=== PATIENT | female | born 1960 | race Caucasian/White ===

== ENCOUNTER 2018-03-16 21:25 | Outpatient (REF) | payer BC, SELFPAY ==
[2018-03-16 22:21] LABS: ALT 37 U/L (12-78); AST 22 U/L (15-37); Alkaline Phosphatase 97 U/L (46-116); BUN 11 mg/dL (7-18); Bilirubin, Total 0.5 mg/dL (0.2-1.0); CREATININE 0.92 mg/dL (0.55-1.02); Calcium 9.2 mg/dL (8.5-10.1); Chloride 103 mmol/L (98-107); Cholesterol 251 mg/dL (50-200); Glucose 92 mg/dL (70-100); HDL Cholesterol 44 mg/dL (40-60); LDL CHOLESTEROL 181 mg/dL (<100); Sodium 139 mmol/L (136-145); Total Protein 7.1 g/dL (6.4-8.2); Triglyceride 149 mg/dL (30-150)
== END 2018-03-16 21:45 ==
LOC: NCHCN 21:25
PROVIDERS: PCP Physician Assistant Medical; Visit Provider Physician Assistant Medical
DX: E78.5 Hyperlipidemia, unspecified (principal); I10 Essential (primary) hypertension; E03.9 Hypothyroidism, unspecified
CPT/HCPCS: 80053; 80061; 83721; 84443

== ENCOUNTER 2018-04-27 21:31 | Outpatient (REF) | payer BC, SELFPAY | END 2018-04-27 21:51 | LOC: NCHCN 21:31 | PROVIDERS: PCP Physician Assistant Medical; Visit Provider Physician Assistant Medical | DX: R10.31 Right lower quadrant pain (principal) | CPT/HCPCS: 87077; 87086; 87186 ==

== ENCOUNTER 2018-07-13 00:43 | Outpatient (CLI) | payer BC, SELFPAY ==
--- NOTE | 2018-07-13 09:58 | DI.MAMMO_ITS ---
SYMPTOM/DIAGNOSIS: SCREENING, HEALTH MAINTENANCE, Z00.8 MAMMOGRAMS: Mammograms were interpreted according to the usual protocol including computer analysis with CAD system, tomosynthesis and C view imaging. The breasts are of moderate density with fairly symmetrical distribution of fibroglandular tissue. No dominant mass or clumped microcalcification is identified in either breast. The current examination is compared with previous examination of 06/2016 and there has been no gross interval change in appearance since that time. CONCLUSION: No specific evidence of malignancy at this time. Routine screening examinations are suggested at yearly intervals in this age group according to the ACS/ACR guidelines. Category 1. Breast density, category B. MQSA ASSESSMENT OF FINDINGS: Negative. Category 1. Patient will receive a letter notifying them of these results. BI-RADS category B. There are scattered areas of fibroglandular density.
== END 2018-07-13 01:03 ==
PROVIDERS: PCP Physician Assistant Medical; Visit Provider Physician Assistant Medical
DX: Z00.00 Encounter for general adult medical examination without abnormal findings (principal); Z12.31 Encounter for screening mammogram for malignant neoplasm of breast
CPT/HCPCS: 77063; 77067

== ENCOUNTER 2018-07-20 21:51 | Outpatient (REF) | payer BC, SELFPAY ==
[2018-07-20 21:34] LABS: ALT 33 U/L (12-78); AST 19 U/L (15-37); Albumin 3.6 g/dL (3.4-5.0); Alkaline Phosphatase 69 U/L (46-116); Anion Gap 6.9 mmol/L (3-11); BUN 15 mg/dL (7-18); Bilirubin, Total 0.4 mg/dL (0.2-1.0); CO2 29.1 mmol/L (21.0-32.0); CREATININE 0.86 mg/dL (0.55-1.02); Calcium 8.9 mg/dL (8.5-10.1); Chloride 104 mmol/L (98-107); Cholesterol 172 mg/dL (50-200); Glucose 108 mg/dL (70-100); HDL Cholesterol 39 mg/dL (40-60); LDL CHOLESTEROL 105 mg/dL (<100); Potassium 4.3 mmol/L (3.5-5.1); Sodium 140 mmol/L (136-145); Total Protein 6.6 g/dL (6.4-8.2); Triglyceride 206 mg/dL (30-150)
[2018-07-20 21:44] LABS: Hemoglobin A1C 5.7 % (4.5-6.2)
== END 2018-07-20 22:11 ==
LOC: NCHCN 21:51
PROVIDERS: PCP Physician Assistant Medical; Visit Provider Physician Assistant Medical
DX: E78.5 Hyperlipidemia, unspecified (principal)
CPT/HCPCS: 80053; 80061; 83721; 83036

== ENCOUNTER 2019-02-26 08:50 | Outpatient (REF) | payer BC, SELFPAY ==
[2019-02-26 18:44] LABS: TSH 3.76 uIU/mL (0.36-3.74)
== END 2019-02-26 09:10 ==
LOC: NCHCN 08:50
PROVIDERS: PCP Physician Assistant Medical; Visit Provider Physician Assistant Medical
DX: E03.9 Hypothyroidism, unspecified (principal)
CPT/HCPCS: 84443

== ENCOUNTER 2019-05-03 10:53 | Outpatient (REF) | payer OTHER, SELFPAY ==
[2019-05-03 21:56] LABS: Hemoglobin A1C 5.8 % (3.8-5.6)
[2019-05-03 22:24] LABS: ALT 43 U/L (14-59); AST 24 U/L (15-37); Albumin 4.1 g/dL (3.4-5.0); Alkaline Phosphatase 73 U/L (46-116); Anion Gap 7.3 mmol/L (3-11); BUN 21 mg/dL (7-18); Bilirubin, Total 0.4 mg/dL (0.2-1.0); CO2 32.7 mmol/L (21.0-32.0); CREATININE 1.03 mg/dL (0.55-1.02); Calcium 9.5 mg/dL (8.5-10.1); Calculated LDL 87 mg/dL (<100); Chloride 100 mmol/L (98-107); Cholesterol 172 mg/dL (<200); Estimated GFR 55.43 (mL/min/1.73m2); Glucose 105 mg/dL (74-106); HDL Cholesterol 38 mg/dL (40-60); Potassium 4.1 mmol/L (3.5-5.1); Sodium 140 mmol/L (136-145); TSH 2.11 uIU/mL (0.36-3.74); Total Protein 7.3 g/dL (6.4-8.2); Triglyceride 238 mg/dL (<150)
== END 2019-05-03 11:13 ==
LOC: NCHCN 10:53
PROVIDERS: PCP Physician Assistant Medical; Visit Provider Physician Assistant Medical
DX: E03.9 Hypothyroidism, unspecified (principal); E78.5 Hyperlipidemia, unspecified
CPT/HCPCS: 80053; 80061; 82306; 82607; 82670; 83001; 83002; 83036; 84146; 84443; 85025

== ENCOUNTER 2020-07-31 20:48 | Outpatient (REF) | payer OTHER, SELFPAY ==
[2020-07-31 14:57] LABS: Hemoglobin A1C 5.6 % (<5.7)
[2020-07-31 15:07] LABS: ALT 34 U/L (14-59); AST 17 U/L (15-37); Albumin 3.9 g/dL (3.4-5.0); Alkaline Phosphatase 70 U/L (46-116); Anion Gap 8.8 mmol/L (3-11); BUN 19 mg/dL (7-18); Bilirubin, Total 0.4 mg/dL (0.2-1.0); CO2 28.2 mmol/L (21.0-32.0); CREATININE 1.1 mg/dL (0.55-1.02); Calcium 9.1 mg/dL (8.5-10.1); Calculated LDL 96 mg/dL (<100); Chloride 106 mmol/L (98-107); Cholesterol 167 mg/dL (<200); Glucose 93 mg/dL (74-106); HDL Cholesterol 41 mg/dL (40-60); Potassium 4.9 mmol/L (3.5-5.1); Sodium 143 mmol/L (136-145); TSH 1.97 uIU/mL (0.36-3.74); Total Protein 6.9 g/dL (6.4-8.2); Triglyceride 150 mg/dL (<150)
== END 2020-07-31 20:49 | disposition home or self-care (01) ==
LOC: NCHCN 20:48
PROVIDERS: PCP Physician Assistant Medical; Visit Provider Physician Assistant Medical
DX: E03.9 Hypothyroidism, unspecified (principal); E78.5 Hyperlipidemia, unspecified; I10 Essential (primary) hypertension; R73.03 Prediabetes
CPT/HCPCS: 80053; 80061; 83036; 84443

== ENCOUNTER 2021-07-09 01:29 | Outpatient (CLI) | payer OTHER, SELFPAY ==
--- NOTE | 2021-07-09 11:19 | DI.MAMMO_ITS ---
Exam(s) MAMMO SCREENING EXAM: MAMMO SCREENING CLINICAL HISTORY: SCREENING, HEALTH MAINTENANCE EXAM, Z00.8 TECHNIQUE: Mammograms were interpreted according to the usual protocol including computer analysis w [employer] CAD system, tomosynthesis and C-view imaging. COMPARISON: 2017 and 2018 FINDINGS: The breasts are composed of scattered fibroglandular densities, Breast Density category B. No suspicious masses or suspicious microcalcifications are seen. No skin thickening or abnormal axillary lymph nodes are seen. There has been no significant change from prior exams. IMPRESSION: BI-RADS Category 1, Negative mammogram Yearly screening mammography is recommended. Breast Density - Category B, scattered fibroglandular densities. A negative radiographic report should not delay biopsy if a dominant or clinically suspicious mass is present. Up to ten percent of cancers are not identified on mammography. A negative report may reinforce clinical impression. Adenosis and dense breasts may obscure an underlying neoplasm. False positive reports average 6 to 10%. Patient will receive a letter notifying them of these results.
== END 2021-07-09 01:49 ==
PROVIDERS: PCP Physician Assistant Medical; Visit Provider Physician Assistant Medical
DX: Z00.00 Encounter for general adult medical examination without abnormal findings (principal); Z12.31 Encounter for screening mammogram for malignant neoplasm of breast
CPT/HCPCS: 77063; 77067

== ENCOUNTER 2021-10-12 10:54 | Outpatient (REF) | payer OTHER, SELFPAY ==
[2021-10-12 16:49] LABS: HCT 44.7 % (36.0-46.0); HGB 14.6 g/dL (11.2-15.7); MCH 28.9 pg (27.0-33.0); MCHC 32.7 % (32.0-36.0); MCV 88 fL (80-95); MPV 10.8 fL (8.0-11.0); Platelet Count 327 10^3/uL (130-400); RBC 5.06 10^6/uL (3.93-5.22); RDW 13.2 % (11.7-14.6); RDW-SD 42.9 fL; WBC 9.18 10^3/uL (4.4-10.8)
[2021-10-12 17:32] LABS: Hemoglobin A1C 5.6 % (<5.7)
[2021-10-12 18:13] LABS: ALT 33 U/L (14-59); AST 15 U/L (15-37); Albumin 3.8 g/dL (3.4-5.0); Alkaline Phosphatase 71 U/L (46-116); Anion Gap 7.9 mmol/L (3-11); BUN 19 mg/dL (7-18); Bilirubin, Total 0.4 mg/dL (0.2-1.0); CO2 32.1 mmol/L (21.0-32.0); CREATININE 1.2 mg/dL (0.55-1.02); Calculated LDL 84 mg/dL (<100); Chloride 102 mmol/L (98-107); Cholesterol 172 mg/dL (<200); Estimated GFR 46.14 (mL/min/1.73m2); Glucose 120 mg/dL (74-106); HDL Cholesterol 41 mg/dL (40-60); Potassium 3.6 mmol/L (3.5-5.1); Sodium 142 mmol/L (136-145); TSH 3.08 uIU/mL (0.36-3.74); Total Protein 7.3 g/dL (6.4-8.2); Triglyceride 236 mg/dL (<150)
== END 2021-10-12 10:55 | disposition home or self-care (01) ==
LOC: NCHCN 10:54
PROVIDERS: PCP Physician Assistant Medical; Visit Provider Physician Assistant Medical
DX: R73.03 Prediabetes (principal); E03.9 Hypothyroidism, unspecified; E78.5 Hyperlipidemia, unspecified; K76.0 Fatty (change of) liver, not elsewhere classified
CPT/HCPCS: 80053; 80061; 85027; 83036; 84443

== ENCOUNTER 2022-01-18 16:41 | Outpatient (REF) | payer OTHER, SELFPAY ==
--- NOTE | 2022-01-18 16:15 | ENDOMET_PTH ---
PATIENT: Cherri Morales LOC: [facility] U#:[id number] AGE/SX: 61/F ROOM: RE01/18/[address]: Geraldine Hernadez MD : 1960 BED: DIS: 01/18/2022 SPEC #: [id number] RECD: 01/18/22 18:29 STATUS: NASH REInez #: [id number] ERVIN: 01/18/22 16:[address]: Geraldine Hernadez DEPT: Surgical Specimen RECD BY: Alicia Florez ENTERED: 01/18/22 18:29 SP TYPE: Endomet OTHR DR: Isabel Peña Tissues: 1 - ENDOMETRIUM BX/CURRETTE 2 - CERVICAL BIOPSY Procedures: GROSS AND MICRO LEVEL 4 Comments: [id number]
== END 2022-01-18 16:42 | disposition home or self-care (01) ==
LOC: LBN 16:41
PROVIDERS: PCP Physician Assistant Medical; Visit Provider Obstetrics & Gynecology
DX: N84.1 Polyp of cervix uteri (principal)
CPT/HCPCS: 88305

== ENCOUNTER 2022-02-25 05:52 | Day surgery (SDC) | payer OTHER, SELFPAY ==
[2022-02-25] VITALS (11 sets, daily range): BP systolic 106–148; BP diastolic 45–86; PULSE 65–76; RESP 13–22; TEMP 36.3–36.5; O2SAT 93–100; BMI 57.5
--- NOTE | 2022-02-25 06:57 | W.ANESPRE ---
General Info Date of Service Date Performed: 02/25/22 Height: 5 ft 1 in Weight: 138.2 kg Body Mass Index (BMI): 57.5 Surgical Procedure: Operation Date: 02/25/22 07:40 Proposed Procedure Side Surgeon p Dilation & Curettage Geraldine Hernadez MD Meds Allergies and Home Medications Allergies Allergy/AdvReac Type Severity Reaction Status Date / Time sulfamethoxazole Allergy Severe Verified 02/25/22 06:52 [From Bactrim] trimethoprim [From Bactrim] Allergy Severe Verified 02/25/22 06:52 SEASONAL ALLERGIES Allergy PLUGS UP Uncoded 02/25/22 06:52 SINUSES AND SWELLS EYES Home Medication Medication Instructions Recorded aspirin 81 mg chewable tablet 81 mg PO HS #1 tab-cap 07/02/13 (Aspirin Low-Strength) simvastatin 20 mg tablet (Zocor) 20 mg PO HS 07/02/13 cetirizine 10 mg tablet 10 mg PO HS 07/29/18 chlorthalidone 25 mg tablet 25 mg PO HS 07/29/18 atenolol 50 mg tablet 100 mg PO QHS #1 tab-cap 01/18/22 cranberry extract 425 mg capsule 425 mg PO HS 01/18/22 levothyroxine 75 mcg tablet 100 mcg PO DAILY 01/18/22 (Synthroid) melatonin 10 mg capsule 10 mg PO HS PRN 01/18/22 Current Visit Medications: Current Medications Generic Name Dose Route Start Last Admin Trade Name Freq PRN Reason Stop Dose Admin Ringer's Solution 1,000 mls @ 125 mls/hr 02/25/22 06:00 IV 03/24/22 23:59 INFUSION HERNANDO IV Miscellaneous Supplies 1 each 02/25/22 06:00 Iv Access IV 03/24/22 23:59 DIRECTED HERNANDO Sodium Chloride 0 ml 02/25/22 06:00 Normal Saline Flush 10 Ml Syr IV 03/24/22 23:59 PRN PRN Sodium Chloride 0 ml 02/25/22 06:00 Normal Saline 10 Ml Vial IJ 03/24/22 23:59 DIRECTED PRN Sterile Water 0 ml 02/25/22 06:00 Water,Injection,Sterile 10 Ml Vial IJ 03/24/22 23:59 DIRECTED PRN PFSH Active Problems Active Problems: Problem Status Onset Code Post-menopausal bleeding N95.0 Medical History Medical History Arthralgia Bilateral knee pain CTS (carpal tunnel syndrome) Dysuria Hyperlipidemia Hypertension Hypothyroidism Neck pain Obesity Right flank pain Stress at work Surgical History Surgical History History of ankle surgery History of carpal tunnel surgery of right wrist Tobacco Smoking/Tobacco Use Status: Never Alcohol Alcohol Intake: current Alcohol intake frequency: holidays/special occasions only Substance Use Substance use: Never Substance use type: does not use Prental History History 0 Para Hx # Term Pregnancies Multiple births Hx # Pregnancies Ectopic pregnancies AB induced Hx Number of Living Children AB spontaneous Vital Signs and Lab Results Vital Signs Most Recent Vital Signs in EMR: Most Recent Vital Signs Temp Pulse Resp BP Pulse Ox 36.4 C L 70 16 148/86 H 97 02/25/22 06:37 02/25/22 06:37 02/25/22 06:37 02/25/22 06:37 02/25/22 06:37 Lab Results Blood Type / Crossmatch: No Data to Display Complete Blood Count: No Data to Display Complete Metabolic Panel: No Data to Display Liver Function Panel: No Data to Display Coagulation Panel: No Data to Display Cardiac Panel: No Data to Display Arterial Blood Gas: No Data to Display Venous Blood Gas: No Data to Display Pancreas Panel: No Data to Display Thyroid Panel: No Data to Display Infectious Disease: No Data to Display Blood Cultures: No Data to Display Toxicology Panel: No Data to Display Anesthesia Assessment and Plan Anesthesia History Personal History: No History of Anesthesia Complications Family History: No Family History of Anesthesia Complications Exercise Tolerance Exercise Tolerance: Metabolic Equivalents>4 Pertinent Negatives Pertinent Negatives: No Symptoms of GERD Cardiac & Pulmonary Exam Cardiac Exam: Normal S1/S2 Heart Sounds Pulmonary Exam: Clear Bilateral Breath Sounds Implantable Cardiac Device Does patient have a Pacemaker or an ICD?: No Airway Exam Known Difficult Airway: No Mallampati Class: 3 Mouth Opening: Normal (> 3cm) Thyromental Distance: Greater than 3 cm Neck Range of Motion: Full ROM Neck Circumference: Thick Teeth Condition: Normal Dentition ASA Classification ASA Score: ASA 3 Emergency Case?: No NPO Status NPO Status: NPO Clears >2 hours, Solids >8 hours Anesthesia Plan Resuscitation Status: Full Code Anesthesia Technique: General Anesthesia Airway Planned: Endotracheal Tube Monitors Used: Standard Monitors
[2022-02-25] MEDS: Lactated Ringers 1,000 ML 125 ML IV (07:21)
--- NOTE | 2022-02-25 07:56 | ENDOMET_PTH ---
PATIENT: Cherri Morales LOC: [facility] U#:[id number] AGE/SX: 61/F ROOM: RE02/25/[address]: Geraldine Hernadez MD : 1960 BED: DIS: 02/25/2022 SPEC #: [id number] RECD: 02/25/22 12:23 STATUS: NASH RE #: [id number] ERVIN: 02/25/22 07:[address]: Geraldine Hernadez DEPT: Surgical Specimen RECD BY: Alicia Florez ENTERED: 02/25/22 12:23 SP TYPE: Endomet OTHR DR: Isabel Peña Tissues: 1 - ENDOMETRIUM BX/ABHIJEET Procedures: GROSS AND MICRO LEVEL 4 Comments: [id number]
--- NOTE | 2022-02-25 08:37 | W.PM.OBDISCH ---
Date of service: 02/25/22 Time of Service: 08:37 Discharge Plan Disposition Patient Disposition: HOME Condition: Good Discharge Details Attending Provider: Geraldine Hernadez Primary Care Provider: Isabel Peña Home Meds and New Rx's Prescriptions: No Action melatonin 10 mg capsule 10 mg PO HS PRN cranberry extract 425 mg capsule 425 mg PO HS Label Comments: 01/18/22- pt unsure of dose Rx Instructions: administer with a meal simvastatin [Zocor] 20 MG tablet 20 mg PO HS aspirin [Aspirin Low-Strength] 81 MG tablet,chewable 81 mg PO HS Qty: 1 chlorthalidone 25 mg tablet 25 mg PO HS cetirizine 10 mg tablet 10 mg PO HS levothyroxine [Synthroid] 75 mcg tablet 100 mcg PO DAILY atenolol 50 mg tablet 100 mg PO QHS Qty: 1 Discharge Instructions Activity:: Activity as Tolerated Activity:: Activity as Tolerated Diet:: As Tolerated Exam Physical Exam Vital signs: Temp Pulse Resp BP Pulse Ox 97.7 F 74 18 118/59 L 95 02/25/22 08:25 02/25/22 08:30 02/25/22 08:30 02/25/22 08:30 02/25/22 08:30 Vital Signs Reviewed: Yes PFSH All Active Problems Post-menopausal bleeding (Acute) Medical History Arthralgia Bilateral knee pain CTS (carpal tunnel syndrome) Dysuria Hyperlipidemia Hypertension Hypothyroidism Neck pain Obesity Right flank pain Stress at work Surgical History History of ankle surgery History of carpal tunnel surgery of right wrist Social History (Updated 10/12/18 @ 11:34 by Kathleen Costello) Smoking/Tobacco Use Status: Never Smoking risk assessment performed?: Yes Alcohol Intake: current Alcohol Intake frequency: holidays/special occasions only Drug use: Never Substance use type: does not use Do you feel safe at home: Yes Do you feel safe in your relationship?: Yes Female Reproductive History Menstrual Age of Menarche: 14 History History 0 Para Hx # Term Pregnancies Multiple births Hx # Pregnancies Ectopic pregnancies AB induced Hx Number of Living Children AB spontaneous DS: Data Vitals/I&O Vitals and I&O: Vital Signs Temperature 97.7 F 02/25/22 08:25 Pulse 74 02/25/22 08:30 Pulse Rhythm Regular 02/25/22 06:37 Respiratory Rate 18 02/25/22 08:30 Respiratory Depth Normal 02/25/22 06:37 Blood Pressure 118/59 L 02/25/22 08:30 Pulse Oximetry 95 02/25/22 08:30 Respiratory End-tidal CO2 35 02/25/22 08:30 Oxygen Delivery Method Nasal Cannula 02/25/22 08:30 Oxygen Flow Rate 6 02/25/22 08:30 Pain Level 0 02/25/22 08:30 Intake & Output 02/24/22 02/24/22 02/25/22 11:59 23:59 11:59 Intake Total 300 / 300 Balance 300 / 300 Weight 304 lb 10.861 oz Intake: IV 300 / 300 Other: Urine Color Yellow Urine Appearance Clear Emesis Description None
--- NOTE | 2022-02-25 08:46 | W.PM.DS.N ---
Date of service: 02/25/22 Time of Service: 08:47 DS: Diagnosis Discharge Diagnosis (1) Post-menopausal bleeding: Status: Acute Asessment and Plan: Uncomplicated D&C. Discharge Plan Disposition Patient Disposition: HOME Condition: Good Discharge Details Attending Provider: Geraldine Hernadez Primary Care Provider: Isabel Peña Home Meds and New Rx's Prescriptions: No Action melatonin 10 mg capsule 10 mg PO HS PRN cranberry extract 425 mg capsule 425 mg PO HS Label Comments: 01/18/22- pt unsure of dose Rx Instructions: administer with a meal simvastatin [Zocor] 20 MG tablet 20 mg PO HS aspirin [Aspirin Low-Strength] 81 MG tablet,chewable 81 mg PO HS Qty: 1 chlorthalidone 25 mg tablet 25 mg PO HS cetirizine 10 mg tablet 10 mg PO HS levothyroxine [Synthroid] 75 mcg tablet 100 mcg PO DAILY atenolol 50 mg tablet 100 mg PO QHS Qty: 1 Discharge Instructions Activity:: Activity as Tolerated Activity:: Activity as Tolerated Diet:: As Tolerated DS: Data Vitals/I&O Vitals and I&O: Vital Signs Temperature 97.7 F 02/25/22 08:40 Pulse 75 02/25/22 08:40 Pulse Rhythm Regular 02/25/22 06:37 Respiratory Rate 15 02/25/22 08:40 Respiratory Depth Normal 02/25/22 06:37 Blood Pressure 132/62 02/25/22 08:40 Pulse Oximetry 97 02/25/22 08:40 Respiratory End-tidal CO2 35 02/25/22 08:40 Oxygen Delivery Method Nasal Cannula 02/25/22 08:40 Oxygen Flow Rate 6 02/25/22 08:40 Pain Level 0 02/25/22 08:40 Intake & Output 02/24/22 02/24/22 02/25/22 11:59 23:59 11:59 Intake Total 300 / 300 Balance 300 / 300 Weight 304 lb 10.861 oz Intake: IV 300 / 300 Other: Urine Color Yellow Urine Appearance Clear Emesis Description None PFSH All Active Problems Post-menopausal bleeding (Acute) Medical History Arthralgia Bilateral knee pain CTS (carpal tunnel syndrome) Dysuria Hyperlipidemia Hypertension Hypothyroidism Neck pain Obesity Right flank pain Stress at work Surgical History History of ankle surgery History of carpal tunnel surgery of right wrist Social History (Updated 10/12/18 @ 11:34 by Kathleen Costello) Smoking/Tobacco Use Status: Never Smoking risk assessment performed?: Yes Alcohol Intake: current Alcohol Intake frequency: holidays/special occasions only Drug use: Never Substance use type: does not use Do you feel safe at home: Yes Do you feel safe in your relationship?: Yes Female Reproductive History Menstrual Age of Menarche: 14 History History 0 Para Hx # Term Pregnancies Multiple births Hx # Pregnancies Ectopic pregnancies AB induced Hx Number of Living Children AB spontaneous
--- NOTE | 2022-02-25 08:49 | W.PM.DSUDISC ---
Date of service: 02/25/22 Time of Service: 08:49 Discharge Plan Disposition Patient Disposition: HOME Condition: Good Discharge Details Attending Provider: Geraldine Hernadez Primary Care Provider: Isabel Peña Home Meds and New Rx's Prescriptions: No Action melatonin 10 mg capsule 10 mg PO HS PRN cranberry extract 425 mg capsule 425 mg PO HS Label Comments: 01/18/22- pt unsure of dose Rx Instructions: administer with a meal simvastatin [Zocor] 20 MG tablet 20 mg PO HS aspirin [Aspirin Low-Strength] 81 MG tablet,chewable 81 mg PO HS Qty: 1 chlorthalidone 25 mg tablet 25 mg PO HS cetirizine 10 mg tablet 10 mg PO HS levothyroxine [Synthroid] 75 mcg tablet 100 mcg PO DAILY atenolol 50 mg tablet 100 mg PO QHS Qty: 1 Discharge Instructions Activity:: Activity as Tolerated Activity:: Activity as Tolerated Diet:: As Tolerated DS: Diagnosis Discharge Diagnosis (1) Post-menopausal bleeding: Status: Acute Asessment and Plan: Uncomplicated D&C
--- NOTE | 2022-02-25 08:50 | ROE_ITS ---
Date of service: 02/25/22 Time of Service: 08:50 Operative Note Operative Note DATE OF PROCEDURE: 02/25/22 PRE-OP DIAGNOSIS: post-menopausal bleeding POST-OP DIAGNOSIS: same PROCEDURE: D&C SURGEON: Geraldine Hernadez Refer to Anesthesia Record ESTIMATED BLOOD LOSS: 10 COMPLICATIONS: None Indications: Cherri has had PMB and had an endo bx that showed disordered proliferative endometrium with a benign polyp Findings: Minimal polypoid tissue obtained Procedure Description: After informed consent was signed the patient was taken to the operating room and given General room air anesthesia. SCDs were placed on her legs. She was prepped and draped in the dorsal lithotomy position in the [facility]. A time out was performed. Her bladder was drained of urine. Exam under anesthesia revealed normal external genitalia, vagina normal for age and a normal sized uterus. A speculum was placed into the vagina to reveal the cervix. The anterior lip of the cervix was grasped with a single tooth tenaculum. The cervix was dilated and the uterus sounded to 7cm. A sharp curettage was performed. There was minimal bleeding. The tenaculum was removed from the cervix with good hemostasis. The speculum was removed from the vagina. The patient was placed back into the supine position. She was moved to the stretcher and taken to the recovery room in stable condition.
--- NOTE | 2022-02-25 09:21 | W.ANESPOSTOP ---
Postoperative Evaluation Date, Time and Location Date Performed: 02/25/22 Time Performed: 09:21 Patient Location: PACU Vital Signs Most Recent Imported Vital Signs: Most Recent Vital Signs Temp Pulse Resp BP Pulse Ox 36.5 C 66 15 128/65 97 02/25/22 09:00 02/25/22 09:10 02/25/22 09:10 02/25/22 09:10 02/25/22 09:10 Pain Score Most Recent Pain Score: Most Recent Pain Score Pain Level 0 02/25/22 09:10 Assessment Mental Status: Awake (Alert & Oriented to Patient Baseline) Airway and Respiratory Function: Patent airway with normal (patient baseline) respiratory exam Cardiovascular Function: Hemodynamically Stable Hydration Status: Adequately Hydrated Nausea & Vomiting: No Nausea or Vomiting Pain: Pt. Denies Any Pain Peripheral Nerve Block: Patient did not receive a nerve block Postoperative Comments:: Pt. initially had some post extubation stridor, maintaining good saturation, but felt she was working on inspiration and did look to be as well. Gave additional sugammadex without change. Was debating racemic epi neb, but she has since improved and feels she is breathing normally. Advised her to seek emergency care if this returns, although with steroids on board, I do not believe it will.
== END 2022-02-25 10:21 | disposition home or self-care (01) ==
PROVIDERS: PCP Physician Assistant Medical; Visit Provider Obstetrics & Gynecology
PROC: (CPT 58120; principal; 2022-02-25 07:30)
DX: N95.0 Postmenopausal bleeding (principal); N84.0 Polyp of corpus uteri
CPT/HCPCS: 58120; 88305; J1100; J1885; J2250; J2405; J2704

== ENCOUNTER 2022-10-25 18:47 | Outpatient (REF) | payer OTHER, SELFPAY ==
[2022-10-25 15:41] LABS: Abs Immature Grans 0.03 10^3/uL (0.0-0.06); Absolute Basophil Count 0.04 10^3/uL (0.0-0.2); Absolute Eosinophil Count 0.16 10^3/uL (0.0-0.7); Absolute Lymphocyte Count 1.62 10^3/uL (1.2-3.4); Absolute Monocyte Count 0.69 10^3/uL (0.1-0.8); Absolute Neutrophil Count 5.94 10^3/uL (1.2-6.7); Basophils % 0.5; Eosinophils % 1.9; HCT 46.3 % (36.0-46.0); HGB 14.7 g/dL (11.2-15.7); Immature Grans % 0.4; Lymphocytes % 19.1; MCH 28.3 pg (27.0-33.0); MCHC 31.7 % (32.0-36.0); MCV 89 fL (80-95); MPV 10.3 fL (8.0-11.0); Monocytes % 8.1; Platelet Count 275 10^3/uL (130-400); RBC 5.19 10^6/uL (3.93-5.22); RDW 13.1 % (11.7-14.6); WBC 8.48 10^3/uL (4.4-10.8)
[2022-10-25 16:05] LABS: ALT 34 U/L (14-59); AST 22 U/L (15-37); Albumin 3.8 g/dL (3.4-5.0); Alkaline Phosphatase 81 U/L (46-116); Anion Gap 6.9 mmol/L (3-11); BUN 15 mg/dL (7-18); Bilirubin, Total 0.5 mg/dL (0.2-1.0); CO2 32.1 mmol/L (21.0-32.0); CREATININE 1.1 mg/dL (0.55-1.02); Calcium 9.3 mg/dL (8.5-10.1); Calculated LDL 107 mg/dL (<100); Chloride 101 mmol/L (98-107); Cholesterol 182 mg/dL (<200); Estimated GFR 57.88 (mL/min/1.73m2); Glucose 112 mg/dL (74-106); HDL Cholesterol 48 mg/dL (40-60); Sodium 140 mmol/L (136-145); TSH (W/Ref FT4) 3.02 uIU/mL (0.36-3.74); Total Protein 7.3 g/dL (6.4-8.2); Triglyceride 138 mg/dL (<150)
[2022-10-25 17:05] LABS: Hemoglobin A1C 5.8 % (<5.7)
== END 2022-10-25 18:48 | disposition home or self-care (01) ==
LOC: NCHCN 18:47
PROVIDERS: PCP Physician Assistant Medical; Visit Provider Physician Assistant Medical
DX: R73.03 Prediabetes (principal); E03.9 Hypothyroidism, unspecified; E78.5 Hyperlipidemia, unspecified; K76.0 Fatty (change of) liver, not elsewhere classified
CPT/HCPCS: 80053; 80061; 83036; 84443; 85025

== ENCOUNTER 2023-01-02 12:07 | Outpatient (REF) | payer OTHER, SELFPAY ==
[2023-01-02 15:42] LABS: TSH 1.92 uIU/mL (0.36-3.74)
== END 2023-01-02 12:08 | disposition home or self-care (01) ==
LOC: NCHCN 12:07
PROVIDERS: PCP Physician Assistant Medical; Visit Provider Physician Assistant Medical
DX: E03.9 Hypothyroidism, unspecified (principal)
CPT/HCPCS: 84443

== ENCOUNTER 2023-04-25 11:31 | Outpatient (REF) | payer OTHER, SELFPAY ==
[2023-04-25 15:56] LABS: ALT 29 U/L (14-59); AST 21 U/L (15-37); Albumin 3.6 g/dL (3.4-5.0); Alkaline Phosphatase 75 U/L (46-116); BUN 16 mg/dL (7-18); Bilirubin, Total 0.6 mg/dL (0.2-1.0); CREATININE 1.2 mg/dL (0.55-1.02); Calcium 9.7 mg/dL (8.5-10.1); Chloride 102 mmol/L (98-107); Estimated GFR 51.82 (mL/min/1.73m2); Glucose 107 mg/dL (74-106); Potassium 3.8 mmol/L (3.5-5.1); Sodium 139 mmol/L (136-145)
[2023-04-25 16:32] LABS: Hemoglobin A1C 5.7 % (<5.7)
== END 2023-04-25 11:32 | disposition home or self-care (01) ==
LOC: NCHCN 11:31
PROVIDERS: PCP Physician Assistant Medical; Visit Provider Physician Assistant Medical
DX: R73.03 Prediabetes (principal); I10 Essential (primary) hypertension; R35.0 Frequency of micturition
CPT/HCPCS: 80053; 87077; 83036; 87086; 87186; 87480; 87510; 87660

== ENCOUNTER 2024-06-09 22:43 | Outpatient (REF) | payer OTHER, SELFPAY ==
[2024-06-09 20:32] LABS: Abs Immature Grans 0.04 10^3/uL (0.0-0.06); Absolute Basophil Count 0.05 10^3/uL (0.0-0.2); Absolute Eosinophil Count 0.14 10^3/uL (0.0-0.7); Absolute Lymphocyte Count 1.92 10^3/uL (1.2-3.4); Absolute Monocyte Count 0.64 10^3/uL (0.1-0.8); Absolute Neutrophil Count 7.42 10^3/uL (1.2-6.7); Basophils % 0.5 %; Eosinophils % 1.4 %; HCT 43.2 % (36.0-46.0); HGB 14.1 g/dL (11.2-15.7); Immature Grans % 0.4 %; Lymphocytes % 18.8 %; MCH 29.6 pg (27.0-33.0); MCHC 32.6 % (32.0-36.0); MCV 91 fL (80-95); MPV 10.6 fL (8.0-11.0); Monocytes % 6.3 %; Neutrophils % 72.6 %; Platelet Count 257 10^3/uL (130-400); RBC 4.77 10^6/uL (3.93-5.22); RDW 13.3 % (11.7-14.6); RDW-SD 44.4 fL; WBC 10.21 10^3/uL (4.4-10.8)
[2024-06-09 20:51] LABS: Hemoglobin A1C 5.8 % (<5.7)
[2024-06-09 20:59] LABS: ALT 20 U/L (14-59); AST 17 U/L (15-37); Albumin 3.5 g/dL (3.4-5.0); Alkaline Phosphatase 89 U/L (46-116); Anion Gap 7.2 mmol/L (3-11); BUN 21 mg/dL (7-18); Bilirubin, Total 0.4 mg/dL (0.2-1.0); CO2 30.8 mmol/L (21.0-32.0); CREATININE 1.4 mg/dL (0.55-1.02); Calcium 9.6 mg/dL (8.5-10.1); Calculated LDL 85 mg/dL (<100); Chloride 104 mmol/L (98-107); Cholesterol 176 mg/dL (<200); Glucose 185 mg/dL (74-106); HDL Cholesterol 48 mg/dL (>or=50); Sodium 142 mmol/L (136-145); TSH (W/Ref FT4) 2.26 uIU/mL (0.36-3.74); Triglyceride 217 mg/dL (<150)
== END 2024-06-09 22:44 | disposition home or self-care (01) ==
LOC: NCHCN 22:43
PROVIDERS: PCP Physician Assistant Medical; Visit Provider Physician Assistant Medical
DX: E78.5 Hyperlipidemia, unspecified (principal); I10 Essential (primary) hypertension; R73.03 Prediabetes; E03.9 Hypothyroidism, unspecified; K76.0 Fatty (change of) liver, not elsewhere classified
CPT/HCPCS: 80053; 80061; 83036; 84443; 85025

== ENCOUNTER 2024-07-16 14:21 | Outpatient (REF) | payer OTHER, SELFPAY ==
[2024-07-16 15:53] LABS: Anion Gap 7.8 mmol/L (3-11); BUN 15 mg/dL (7-18); CO2 32.2 mmol/L (21.0-32.0); CREATININE 1.3 mg/dL (0.55-1.02); Calcium 9.5 mg/dL (8.5-10.1); Chloride 101 mmol/L (98-107); Estimated GFR 46.78 (mL/min/1.73m2); Glucose 145 mg/dL (74-106); Potassium 3.4 mmol/L (3.5-5.1); Sodium 141 mmol/L (136-145)
[2024-07-16 16:07] LABS: COMMENT (LAB VIEW ONLY) 101.23 mg/dL; Microalb ug/mg Crea 11.5 ug/mg Cr
== END 2024-07-16 14:22 | disposition home or self-care (01) ==
LOC: NCHCN 14:21
PROVIDERS: PCP Physician Assistant Medical; Visit Provider Physician Assistant Medical
DX: N18.9 Chronic kidney disease, unspecified (principal)
CPT/HCPCS: 80048; 82043; 82570

== ENCOUNTER 2024-09-15 17:59 | Outpatient (REF) | payer OTHER, SELFPAY ==
[2024-09-15 21:05] LABS: Anion Gap 6.3 mmol/L (3-11); BUN 22 mg/dL (7-18); CO2 32.7 mmol/L (21.0-32.0); CREATININE 1.1 mg/dL (0.55-1.02); Calcium 9.5 mg/dL (8.5-10.1); Chloride 100 mmol/L (98-107); Estimated GFR 57.17 (mL/min/1.73m2); Glucose 121 mg/dL (74-106); Potassium 3.7 mmol/L (3.5-5.1); Sodium 139 mmol/L (136-145)
== END 2024-09-15 18:00 | disposition home or self-care (01) ==
LOC: NCHCN 17:59
PROVIDERS: PCP Physician Assistant Medical; Visit Provider Physician Assistant Medical
DX: N18.9 Chronic kidney disease, unspecified (principal)
CPT/HCPCS: 80048

== ENCOUNTER 2024-12-08 17:38 | Outpatient (REF) | payer OTHER, SELFPAY ==
[2024-12-08 20:25] LABS: Anion Gap 5.0 mmol/L (3-11); BUN 17 mg/dL (7-18); CO2 33.0 mmol/L (21.0-32.0); Calcium 9.3 mg/dL (8.5-10.1); Chloride 101 mmol/L (98-107); Estimated GFR 63.70 (mL/min/1.73m2); Glucose 123 mg/dL (74-106); Potassium 3.5 mmol/L (3.5-5.1); Sodium 139 mmol/L (136-145)
[2024-12-08 20:45] LABS: Hemoglobin A1C 5.9 % (<5.7)
== END 2024-12-08 17:39 | disposition home or self-care (01) ==
LOC: NCHCN 17:38
PROVIDERS: PCP Physician Assistant Medical; Visit Provider Physician Assistant Medical
DX: R73.03 Prediabetes (principal); N18.9 Chronic kidney disease, unspecified
CPT/HCPCS: 80048; 83036